=== PATIENT | female | born 1990 | race Caucasian/White ===

== ENCOUNTER 2019-10-06 01:48 | Emergency (ER) | payer OTHER, SELFPAY ==
[2019-10-06 01:54] VITALS: BP 137/84; PULSE 79; RESP 18; TEMP 36.3; O2SAT 100
--- NOTE | 2019-10-06 02:02 | ED.EAR ---
HPI - Ear Problem General Chief complaint: Ear Stated complaint: jaw and ear pain Time Seen by Provider: 10/06/19 02:02 Source: patient Mode of arrival: ambulatory Limitations: no limitations History of Present Illness HPI Narrative: Patient is a 29-year-old female who presents for evaluation of right-sided jaw and ear pain. Patient reports feeling as if she has fluid in her ear. She reports a popping sensation whenever she moves her jaw and some associated pain over the right jaw. She reports pain when she bites down. Pain is dull, aching in nature. Patient cannot sleep, thus she sought care in the emergency department. No discharge from the ear. Patient states that her hearing seems a bit muffled. No sore throat, patient does report some sinus congestion since stopping smoking. Patient denies any headache, chest pain, shortness of breath. No recent sick contacts. No fever. Related Data Home Medications Medication Instructions Recorded Confirmed levonorgestrel-ethinyl estrad 1 tablet PO DAILY 10/06/19 [Vienva] Allergies Allergy/AdvReac Type Severity Reaction Status Date / Time No Known Allergies Allergy Verified 10/06/19 02:00 Review of Systems Review of Systems: Narrative: CONSTITUTIONAL: Denies fever CARDIOVASCULAR: Denies chest pain RESPIRATORY: Denies cough or dyspnea. GASTROINTESTINAL: Denies abdominal pain SKIN: Denies rash MUSCULOSKELETAL: Denies back pain NEUROLOGIC: Denies headache PMF Past Medical History Medical History (Updated 10/06/19 @ 02:18 by Alexia Latham MD) Hypothyroid Tonsillitis Surgical History Surgical History (Updated 10/06/19 @ 02:03 by Alexia Latham MD) History of tonsillectomy Exam Narrative: Exam Narrative: GENERAL: Awake, alert, conversant HEAD: Normocephalic, atraumatic. EYES: PERRLA and EOMI. ENT: Nares clear, no rhinorrhea or epistaxis. Mucous membranes moist. Left tympanic membrane unremarkable. Right tympanic membrane with small serous effusion. No perforation. Mild erythema of the right tympanic membrane without bulging. Uvula is midline. No dental caries. NECK: Supple. Tenderness to the right masseter. No facial edema, erythema. Pain is with palpation. Bite is in alignment. CHEST: No respiratory distress, breathing even and non labored HEART: Regular rate, sinus rhythm ABDOMEN:Non distended, non tender EXTREMITIES: Normal range of motion. No edema. SKIN: Warm, dry, no rash. NEURO:No focal deficits. Alert and oriented x3 Course Vital Signs Vital signs: Vital Signs Temperature 36.3 C L 10/06/19 01:54 Pulse Rate 79 10/06/19 01:54 Respiratory Rate 18 10/06/19 01:54 Blood Pressure 137/84 10/06/19 01:54 Pulse Oximetry 100 10/06/19 01:54 Temperature 36.3 C L 10/06/19 01:54 Pulse Rate 79 10/06/19 01:54 Respiratory Rate 18 10/06/19 01:54 Blood Pressure 137/84 10/06/19 01:54 Pulse Oximetry 100 10/06/19 01:54 Medical Decision Making MDM Narrative Medical decision making narrative: Patient presented for right ear pain, right jaw pain. At the time of initial assessment, ABCs are intact and vital signs are stable. Patient is well-appearing. No facial asymmetry, edema or bruising on exam. Patient with very mild serous effusion of the right ear, perhaps that is what is causing her symptoms. This would be a mild otitis media. Perhaps the jaw pain is related to TMJ type component versus radiation of the pain from the ear. Because I can reproduce it when the patient is made to bite down, I am more suspicious of TMJ. Patient does not have any dental caries. No masses in the mouth. Uvula is midline. No sign of strep pharyngitis. No signs of viral sinusitis. I explained to patient that this could come from gritting her teeth at night even if she is not aware of it, and if the antibiotic does not help the pain she is experiencing, she is best to follow-up with her primary care provider and possibly a den
== END 2019-10-06 02:20 | disposition home or self-care (01) ==
LOC: ANHED 02:14
PROVIDERS: Emergency Provider Emergency Medicine; PCP Nurse Practitioner Adult Health
DX: S03.41XA Sprain of jaw, right side, initial encounter (principal); H66.91 Otitis media, unspecified, right ear; E03.9 Hypothyroidism, unspecified; X58.XXXA Exposure to other specified factors, initial encounter
CPT/HCPCS: 99283

== ENCOUNTER 2021-01-08 07:33 | Outpatient (RCR) | payer BC, SELFPAY ==
[2021-01-08] MEDS: RHO(D) IMMUNE GLOBULIN 300 MCG/2 ML SYRINGE IM (17:42)
== END 2021-01-08 07:34 | disposition home or self-care (01) ==
LOC: ANHLAB 07:33
PROVIDERS: PCP Nurse Practitioner Adult Health; Visit Provider Obstetrics & Gynecology
DX: Z29.13 Encounter for prophylactic Rho(D) immune globulin (principal); O36.0130 Maternal care for anti-D [Rh] antibodies, third trimester, not applicable or unspecified; Z3A.00 Weeks of gestation of pregnancy not specified
CPT/HCPCS: 36415; 85461; 90384; 96372; J2790

== ENCOUNTER 2021-06-06 17:17 | Outpatient (RCR) | payer BC, OTHER, SELFPAY ==
[2021-06-05 11:58] LABS: Hematocrit 31.7 % (37.0-47.0); Hemoglobin 10.7 g/dL (12.0-15.0)
[2021-06-06 06:55] LABS: HIV 1/2 Ab P24 Ag Result Negative (Negative)
[2021-06-06] MEDS: RHO(D) IMMUNE GLOBULIN 300 MCG/2 ML SYRINGE IM (17:29)
== END 2021-09-03 23:59 | disposition home or self-care (01) ==
LOC: ANHLAB 17:17
PROVIDERS: PCP Nurse Practitioner Adult Health; Visit Provider Obstetrics & Gynecology
DX: Z11.4 Encounter for screening for human immunodeficiency virus [HIV] (principal); Z29.13 Encounter for prophylactic Rho(D) immune globulin; O36.0190 Maternal care for anti-D [Rh] antibodies, unspecified trimester, not applicable or unspecified; Z3A.00 Weeks of gestation of pregnancy not specified
CPT/HCPCS: 36415; 85014; 85018; 85461; 86703; 90384; G0432; J2790

== ENCOUNTER 2021-06-30 21:34 | Observation (INO) | payer BC, OTHER, SELFPAY ==
[2021-06-30] VITALS (8 sets, daily range): BP systolic 113–127; BP diastolic 66–70; PULSE 81–95
[2021-06-30 23:02] LABS: Add Urine Microscopic? YES; Appearance Urine Cloudy (Clear); Bacteria Urine Trace /hpf; Bilirubin Urine Negative (Negative); Blood Urine Negative (Negative); Color Urine Yellow (Yellow); Glucose Urine UA Negative (Negative); Ketones Urine 1+ mg/dL (Negative); Leukocyte Esterase Ur Trace LEU/UL (NEGATIVE); Mucus Urine Rare /lpf; Nitrate Urine Negative (Negative); Protein Urine Negative (Negative); RBC Urine 0-2 /hpf (0-2); Specific Grav Ur 1.019 (1.001-1.035); Squamous Epithelial Cell Urine Many /hpf (Few); Urobilinogen Urine Negative mg/dL (<2.0); WBC Urine 0-3 /hpf (0-3)
[2021-06-30] MEDS: TERBUTALINE SULFATE 1 MG/ML VIAL 0.25 MG SUB-Q (23:53)
[2021-07-01 00:02] VITALS: BP 111/70; PULSE 98
[2021-07-01 00:31] VITALS: BP 125/75; PULSE 95
[2021-07-01 01:01] VITALS: BP 121/61; PULSE 87
[2021-07-01 01:31] VITALS: BP 113/67; PULSE 94
[2021-07-01 01:39] LABS: Fetal Fibronectin Negative
--- NOTE | 2021-08-04 11:42 | PM.OBTRLD ---
OB - Triage/Final Diagnosis Visit Information Comments/Additional reasons for admission: I have assessed the risk for this patient, Marzena Harris, and determined that she would benefit from observation care. Evaluation Laboratory results: Laboratory Tests 06/30/21 07/01/21 22:51 01:07 Urine Color Yellow Urine Appearance Cloudy H Urine pH 6.0 Ur Specific [place] 1.019 Urine Protein Negative Urine Glucose (UA) Negative Urine Ketones 1+ H Ur Blood (Man) Negative Urine Nitrate Negative Urine Bilirubin Negative Urine Urobilinogen Negative Ur Leukocyte Esterase Trace H Urine RBC 0-2 Urine WBC 0-3 Ur Squamous Epith Cells Many H Urine Bacteria Trace Urine Mucus Rare Fibronectin Negative Final Diagnosis (1) Decreased movement: Code(s): O36.8190 - Decreased movements, unspecified trimester, not applicable or unspecified Status: Acute
== END 2021-07-01 01:57 | disposition home or self-care (01) ==
LOC: ANHOBPP 21:52
PROVIDERS: Advanced Practice Midwife; Admitting Provider Obstetrics & Gynecology; PCP Nurse Practitioner Adult Health; Visit Provider Obstetrics & Gynecology
DX: O36.8190 Decreased fetal movements, unspecified trimester, not applicable or unspecified (principal); Z3A.00 Weeks of gestation of pregnancy not specified
CPT/HCPCS: 81001; 82731; 96372; G0378; G0379; J3105

== ENCOUNTER 2021-07-09 20:35 | Observation (INO) | payer BC, OTHER, SELFPAY ==
[2021-07-09] VITALS (7 sets, daily range): BP systolic 115–145; BP diastolic 62–114; PULSE 80–103; RESP 18; TEMP 36.4; BMI 39.3
--- NOTE | 2021-07-09 21:27 | OBADM ---
This patient, Marzena Harris, admitted to the OB room 113 for observation. Patient/family oriented to hospital policies and general routines including ID bracelet, bed and alarms, visiting hours, pain management, procedures, bathroom and other care routines, personal items, smoking policy, room service/diet, and visiting hours. Patient/Family are encouraged to report perceived risks to care and to ask questions if they do not understand what they are told or what they should do.
[2021-07-09 21:52] LABS: Add Urine Microscopic? YES; Appearance Urine Clear (Clear); Bilirubin Urine Negative (Negative); Blood Urine Negative (Negative); Color Urine Yellow (Yellow); Glucose Urine UA Negative (Negative); Ketones Urine 1+ mg/dL (Negative); Leukocyte Esterase Ur Negative LEU/UL (Negative); Mucus Urine Rare /lpf; Nitrate Urine Negative (Negative); Protein Urine Negative (Negative); RBC Urine 0-2 /hpf (0-2); Specific Grav Ur 1.025 (1.001-1.035); Squamous Epithelial Cell Urine Occasional /hpf (Few); Urobilinogen Urine Negative mg/dL (<2.0); WBC Urine 0-3 /hpf
[2021-07-09] MEDS: TERBUTALINE SULFATE 1 MG/ML VIAL 0.25 MG SUB-Q (22:00)
[2021-07-10] VITALS: BP 123/62; PULSE 89
--- NOTE | 2021-07-10 00:09 | PC.NURSE ---
Update to Leandra Contreras on unit. Will give Procardia XL.
[2021-07-10] MEDS: NIFEdipine 30 MG TAB.ER.24 PO (00:21)
[2021-07-10 01:41] VITALS: BP 128/70; PULSE 85
--- NOTE | 2021-07-12 08:49 | P.PNOB_ITS ---
OB - Triage/Final Diagnosis Visit Information Date of evaluation: 07/09/21 Reason for evaluation: threatened labor Comments/Additional reasons for admission: I have assessed the risk for this patient, Marzena Harris, and determined that she would benefit from observation care. Evaluation Laboratory results: Laboratory Tests 07/09/21 21:33 Urine Color Yellow Urine Appearance Clear Urine pH 6.0 Ur Specific [place] 1.025 Urine Protein Negative Urine Glucose (UA) Negative Urine Ketones 1+ H Ur Blood (Man) Negative Urine Nitrate Negative Urine Bilirubin Negative Urine Urobilinogen Negative Leukocyte Esterase Rfl Negative Urine RBC 0-2 Urine WBC 0-3 Ur Squamous Epith Cells Occasional Urine Mucus Rare
== END 2021-07-10 02:05 | disposition home or self-care (01) ==
PROVIDERS: Advanced Practice Midwife; Admitting Provider Obstetrics & Gynecology; PCP Nurse Practitioner Adult Health; Visit Provider Obstetrics & Gynecology
DX: O47.03 False labor before 37 completed weeks of gestation, third trimester (principal); Z3A.32 32 weeks gestation of pregnancy
CPT/HCPCS: 81001; 96372; A9270; G0378; G0379; J3105

== ENCOUNTER 2021-07-18 07:59 | Outpatient (RCR) | payer BC, OTHER, SELFPAY ==
[2021-07-03 11:46] VITALS: BP 113/67; PULSE 87
[2021-07-18 08:25] VITALS: BP 108/70; PULSE 93
== END 2021-10-01 23:59 | disposition home or self-care (01) ==
LOC: ANHOBOP 07:59
PROVIDERS: PCP Nurse Practitioner Adult Health; Visit Provider Obstetrics & Gynecology
DX: O36.8130 Decreased fetal movements, third trimester, not applicable or unspecified (principal); O24.419 Gestational diabetes mellitus in pregnancy, unspecified control; Z3A.31 31 weeks gestation of pregnancy; Z3A.34 34 weeks gestation of pregnancy
CPT/HCPCS: 59025

== ENCOUNTER 2021-07-21 19:35 | Observation (INO) | payer BC, OTHER, SELFPAY ==
[2021-07-21] VITALS (24 sets, daily range): BP systolic 123–134; BP diastolic 68–80; PULSE 72–92; O2SAT 97–100
[2021-07-21 20:14] LABS: Glucose Point of Care 112 mg/dl (65-105)
--- NOTE | 2021-07-21 21:33 | PC.NURSE ---
2023- called Dr. Sheehan- informed of pt admission for just not feeling right GDM- BS tonight 1 hour after eating was 166. pt was shaky and nauseated and felt crampy. order received for po hydration on monitor. BS here was 112. will continue to monitor and call with questions/concerns
--- NOTE | 2021-07-21 21:35 | PC.NURSE ---
2128- called Dr. Sheehan- update given on pt. pt feeling contractions every 4-5 minutes. order received for Procardia XL 30mg and 1 dose of terbutaline. also perform cervical exam. will continue to monitor and call if questions/concerns
[2021-07-21] MEDS: NIFEdipine 30 MG TAB.ER.24 PO (21:51)
[2021-07-21] MEDS: TERBUTALINE SULFATE 1 MG/ML VIAL 0.25 MG SUB-Q (21:51)
--- NOTE | 2021-07-21 21:55 | PC.NURSE ---
cervical exam 170%/-2. per pt no change from last exam
--- NOTE | 2021-07-21 23:51 | PC.NURSE ---
2323- called Dr. Sheehan- tracing reviewed. pt not feeling contractions and wanting to d/c home. order received to d/c home with instructions on when to return to L&D or call office. pt to keep her appt with Dai Contreras this .
--- NOTE | 2021-07-21 23:56 | OBADM ---
This patient, Marzena Harris, admitted to the OB room OB Post 113 for observation. Patient/family oriented to hospital policies and general routines including ID bracelet, bed and alarms, visiting hours, pain management, procedures, bathroom and other care routines, personal items, smoking policy, room service/diet, and visiting hours. Patient/Family are encouraged to report perceived risks to care and to ask questions if they do not understand what they are told or what they should do.
--- NOTE | 2021-08-11 15:32 | PM.OBTRLD ---
OB - Triage/Final Diagnosis Visit Information Comments/Additional reasons for admission: I have assessed the risk for this patient, Marzena Harris, and determined that she would benefit from observation care. Evaluation Laboratory results: Laboratory Tests 07/21/21 20:10 POC Capillary Glucose 112 H Final Diagnosis (1) Nausea and vomiting: Code(s): R11.2 - Nausea with vomiting, unspecified Status: Acute
== END 2021-07-21 23:39 | disposition home or self-care (01) ==
PROVIDERS: Admitting Provider Obstetrics & Gynecology; PCP Nurse Practitioner Adult Health; Visit Provider Obstetrics & Gynecology
DX: O21.2 Late vomiting of pregnancy (principal); Z3A.34 34 weeks gestation of pregnancy
CPT/HCPCS: 82948; 96372; A9270; G0378; G0379; J3105

== ENCOUNTER 2021-07-28 17:00 | Observation (INO) | payer BC, OTHER, SELFPAY ==
[2021-07-28 17:18] VITALS: BP 113/73; PULSE 90
[2021-07-28 17:31] VITALS: BP 110/69; PULSE 85
[2021-07-28 17:32] VITALS: BMI 38.4
--- NOTE | 2021-07-28 17:32 | OBADM ---
This patient, Marzena Harris, admitted to the OB room OB Post 116 for observation. Patient/family oriented to hospital policies and general routines including ID bracelet, bed and alarms, visiting hours, pain management, procedures, bathroom and other care routines, personal items, smoking policy, room service/diet, and visiting hours. Patient/Family are encouraged to report perceived risks to care and to ask questions if they do not understand what they are told or what they should do.
[2021-07-28 17:46] VITALS: BP 115/70; PULSE 85
[2021-07-28 18:12] VITALS: TEMP 36.6
--- NOTE | 2021-07-30 20:13 | PM.OBTRLD ---
OB - Triage/Final Diagnosis Visit Information Date of evaluation: 07/28/21 Reason for evaluation: threatened labor Comments/Additional reasons for admission: I have assessed the risk for this patient, Marzena Monrealpamela, and determined that she would benefit from observation care.
== END 2021-07-28 18:30 | disposition home or self-care (01) ==
PROVIDERS: Admitting Provider Obstetrics & Gynecology; PCP Nurse Practitioner Adult Health; Referring Provider Advanced Practice Midwife; Visit Provider Obstetrics & Gynecology
DX: O47.03 False labor before 37 completed weeks of gestation, third trimester (principal); Z3A.35 35 weeks gestation of pregnancy
CPT/HCPCS: G0378; G0379

== ENCOUNTER 2021-08-19 18:20 | Observation (INO) | payer BC, MEDICAID, SELFPAY ==
[2021-08-19 21:00] VITALS: RESP 17; TEMP 36.5
[2021-08-19 21:37] VITALS: BMI 38.0
--- NOTE | 2021-08-19 21:37 | OBADM ---
This patient, Marzena Harris, admitted to the OB room Labor/Delivery/Recovery 106 for observation. Patient/family oriented to hospital policies and general routines including ID bracelet, bed and alarms, visiting hours, pain management, procedures, bathroom and other care routines, personal items, smoking policy, room service/diet, and visiting hours. Patient/Family are encouraged to report perceived risks to care and to ask questions if they do not understand what they are told or what they should do.
--- NOTE | 2021-08-22 06:14 | PM.OBTRLD ---
OB - Triage/Final Diagnosis Visit Information Date of evaluation: 08/19/21 Reason for evaluation: threatened labor Comments/Additional reasons for admission: I have assessed the risk for this patient, Marzena Monrealpamela, and determined that she would benefit from observation care.
== END 2021-08-19 21:41 | disposition home or self-care (01) ==
PROVIDERS: Admitting Provider Obstetrics & Gynecology; PCP Nurse Practitioner Adult Health; Visit Provider Obstetrics & Gynecology
DX: O47.9 False labor, unspecified (principal); Z3A.00 Weeks of gestation of pregnancy not specified
CPT/HCPCS: G0378; G0379

== ENCOUNTER 2021-08-22 05:00 | Inpatient (IN) | payer BC, MEDICAID, SELFPAY ==
[2021-08-22] VITALS (69 sets, daily range): BP systolic 56–160; BP diastolic 15–122; PULSE 41–156; RESP 16–18; TEMP 36.1–37.1; O2SAT 88–100; BMI 38.7
--- OUTSIDE RECORDS SUMMARY | 2021-08-22 05:05 | XMS_ITS ---
:1990 Author Care Team Providers Name Role Phone [facility]- Primary Care Provider [phone] Allergies Code Code System Name Reaction Severity Status Onset NKDA ? Medications Name Status Start Date Stop Date ? ? amoxicillin 500 mg tablet Completed 04/24/20142014 take 1 tablet by oral route 2 times every day for 7 days amoxicillin 875 mg tablet Completed ? 2020 aspirin 81 mg capsule Active ? Not availa ble Take 1 capsule every day by oral route. Aviane 0.1 mg-20 mcg tablet Completed ? 01/03 Take 1 tablet every day by oral route. dicloxacillin 500 mg capsule Completed 11/02/201411/2014 take 1 capsule by oral route every 6 h ours 1 hour before a meal or 2 hours after a meal Humulin N NPH U-100 Insulin Active ? Not available (isophane susp) 100 unit/mL subcutaneous hydrocodone 5 mg-acetaminophen Completed ? 325 mg tablet Keflex 500 mg capsule Completed 09/27/2014 12/11/2014 take 1 capsule by oral route every 12 hours levothyroxine 25 mcg tablet Completed ? 03/06 levothyroxine 50 mcg tablet Completed ? 05/2021 levothyroxine 75 mcg tablet Active ? Not available Macrobid 100 mg capsule Completed ? 09/29/19 20 Take 1 capsule every 12 hours by oral route for 5 days. nitrofurantoin Completed ? 09/29/2019 monohydrate/macrocry stals 100 mg caps OneTouch Delica Plus Lancet 33 Active ? N
--- OUTSIDE RECORDS SUMMARY | 2021-08-22 05:05 | XMS_ITS | Encounter Summary ---
:1990 Author Care Team Providers Name Role Phone Marguerite Thompson [facility]- Primary Care Provider [phone] Reason for Visit None recorded. Assessment and Plan 1. condition affecting obs tetrical care of mother ? US, obstetric, biophysical profile Discussion Note: None recorded.Patient educational handouts: No information available. Plan of Care Reminders Provider Appointments Ob Routine 08/29/2021 Leandra h E 9:45AM CHOCO Contreras ? 3Hr Glucose on or around Tory ah E 10/10/2021 CHOCO Contreras Lab None ? ? recorded. Referral None ? ? recorded. Procedures None ? ? recorded. Surgeries None ? ? recorded. Imaging US, 08/19/2021 [place] [facility], Biophysical Profile Medications Name Start Date ? ? aspirin 81 mg capsule ? Take 1 capsule every day by oral route. Humulin N NPH U-100 Insulin (isophane susp) 100 unit/m L subcutaneous ? INJECT 15 UNITS UNDER THE SKIN ONCE DAILY AT BEDTIME levothyroxine 75 mcg tablet ? TAKE 1 TABLET BY MOUTH EVERY DAY OneTouch Delica Plus Lancet 33 gauge ? USE TO TEST FOUR TIMES DAILY OneTouch Ultra Test strips ? USE TO TEST FOUR TIMES DAILY OneTouch
--- OUTSIDE RECORDS SUMMARY | 2021-08-22 05:05 | XMS_ITS | Encounter Summary ---
:1990 Author Care Team Providers Name Role Phone Marguerite Thompson [facility]- Primary Care Provider [phone] Reason for Visit None recorded. Assessment and Plan 1. Gestational diabetes mellitus , class A>2< ? non-stress test Discussion Note: None recorded.Patient educational handouts: No information available. Plan of Care Reminders Provider Appointments Ob Routine 08/29/2021 Leandra Contreras, 9:45AM CN[facility] ? 3Hr on or around Amanda laura, Glucose 10/10/2021 CN[facility] Lab None ? ? recorded. Referral None ? ? recorded. Procedures None ? ? recorded. Surgeries None ? ? recorded. Imaging Non-stress 08/19/2021 Shelly pike Test Medications Name Start Date ? ? aspirin [...] USE TO TEST FOUR TIMES DAILY OneTouch Ultra2 Meter ? USE TO TEST FOUR TIMES DAILY ? Procardia XL 30 mg tablet,extended release ?
--- OUTSIDE RECORDS SUMMARY | 2021-08-22 05:05 | XMS_ITS | Encounter Summary ---
:1990 Author Care Team Providers Name Role Phone Marguerite Thompson [facility]- Primary Care Provider [phone] Reason for Visit OB visit OB [id number] EDC 08/29/2021 LMP 11/22/2020 Assessment and Plan Assessment Note Patient is _38__weeks . Dis cussed plan. 1. Routine care Discussion Note: None recorded.Patient educational handouts: No information available. Plan of Care Reminders Provider Appointments Ob Routine 08/29/2021 Leandra Contreras, 9:45AM CNM ? 3Hr on or around Amanda laura, Glucose 10/10/2021 CNM Lab None ? ? recorded. Referral None ? ? recorded. Procedures None ? ? recorded. Surgeries None ? ? recorded. Imaging None ? ? recorded. Medications Name Start Date ? ? aspirin [...]
--- OUTSIDE RECORDS SUMMARY | 2021-08-22 05:06 | XMS_ITS | Encounter Summary ---
:1990 Author Care Team Providers Name Role Phone Marguerite Thompson [facility]- Primary Care Provider [phone] Reason for Visit None recorded. Assessment and Plan 1. COVID-19 ? US, obstetric, follow-up Discussion Note: None recorded.Patient educational handouts: No information available. Plan of Care Reminders Provider Appointments Ob Routine 08/29/2021 Leandra Contreras, 9:45AM CNM ? 3Hr on or around Amanda laura, Glucose 10/10/2021 CNM Lab None ? ? recorded. Referral None ? ? recorded. Procedures None ? ? recorded. Surgeries None ? ? recorded. Imaging US, 07/15/2021 [place] [facility], Follow-up Medications Name Start Date ? ? aspirin [...]
--- OUTSIDE RECORDS SUMMARY | 2021-08-22 05:06 | XMS_ITS | Encounter Summary ---
:1990 Author Care Team Providers Name Role Phone Marguerite Thompson [facility]- Primary Care Provider [phone] Reason for Visit None recorded. Assessment and [...] Surgeries None ? ? recorded. Imaging Non-stress 08/01/2021 Shelly pike Test Medications Name Start Date [...]
--- OUTSIDE RECORDS SUMMARY | 2021-08-22 05:06 | XMS_ITS | Encounter Summary ---
:1990 Author Care Team Providers Name Role Phone Marguerite [facility]- Primary Care Provider [phone] Reason for Visit OB visit ob [id number] edc 08/29/2021 lmp 11/22/2020 Assessment and Plan Assessment Note Patient is _36__weeks . Dis cussed plan. 1. Routine care [...]
--- OUTSIDE RECORDS SUMMARY | 2021-08-22 05:06 | XMS_ITS | Encounter Summary ---
:1990 Author Care Team Providers Name Role Phone Marguerite Thompson [facility]- Primary Care Provider [phone] Reason for Visit None recorded. Assessment and [...] Surgeries None ? ? recorded. Imaging Non-stress 08/08/2021 Shelly pike Test Medications Name Start Date [...]
--- OUTSIDE RECORDS SUMMARY | 2021-08-22 05:06 | XMS_ITS | Encounter Summary ---
:1990 Author Care Team Providers Name Role Phone Marguerite Thompson [facility]- Primary Care Provider [phone] Reason for Visit OB visit Assessment and Plan 1. Disorder of abdominal r egion 2. Gestational diabetes mellitus 3. Shoulder dystocia - delivered Discussion Note: None recorded.Patient educational handouts: No [...] USE TO TEST FOUR TIMES DAILY ? Proc
--- OUTSIDE RECORDS SUMMARY | 2021-08-22 05:06 | XMS_ITS | Encounter Summary ---
:1990 Author Care Team Providers Name Role Phone Marguerite Thompson [facility]- Primary Care Provider [phone] Reason for Visit None recorded. Assessment and [...] Surgeries None ? ? recorded. Imaging Non-stress 07/29/2021 Shelly pike Test Medications Name Start Date [...]
--- OUTSIDE RECORDS SUMMARY | 2021-08-22 05:06 | XMS_ITS | Encounter Summary ---
:1990 Author Care Team Providers Name Role Phone Marguerite Thompson [facility]- Primary Care Provider [phone] Reason for Visit None recorded. Assessment and [...] Surgeries None ? ? recorded. Imaging Non-stress 07/25/2021 Shelly pike Test Medications Name Start Date [...]
--- OUTSIDE RECORDS SUMMARY | 2021-08-22 05:06 | XMS_ITS | Encounter Summary ---
:1990 Author Care Team Providers Name Role Phone Marguerite Thompson [facility]- Primary Care Provider [phone] Reason for Visit OB visit ob [id number] edc 08/29/2021 lmp 11/22/2020 Assessment and Plan Assessment Note Patient is 37___weeks . Dis cussed plan. 1. Routine care [...]
--- OUTSIDE RECORDS SUMMARY | 2021-08-22 05:06 | XMS_ITS | Encounter Summary ---
:1990 Author Care Team Providers Name Role Phone Marguerite Jay [facility]- Primary Care Provider [phone] Reason for Visit OB visit OB [id number] EDC 08/29/2021 LMP 11/22/2020 PPD SCORE 10 Assessment and Plan Assessment Note Patient is __33_weeks . Dis cussed plan. 1. Routine care 2. Threatened premature labor - not delivered ? Procardia XL 30 mg tablet, extended release Discussion Note: None recorded.Patient educational handouts: No [...]
--- OUTSIDE RECORDS SUMMARY | 2021-08-22 05:06 | XMS_ITS | Encounter Summary ---
:1990 Author Care Team Providers Name Role Phone Marguerite Thompson [facility]- Primary Care Provider [phone] Reason for Visit None recorded. Assessment and Plan 1. Gestational diabetes mellitus , class A>1< ? non-stress test Discussion Note: None recorded.Patient educational handouts: No information available. Plan of Care Reminders Provider Appointments Ob Routine 08/29/2021 Leandra Contreras, 9:45AM CNM ? 3Hr on or around Amanda laura, Glucose 10/10/2021 CNM Lab None ? ? recorded. Referral None ? ? recorded. Procedures None ? ? recorded. Surgeries None ? ? recorded. Imaging Non-stress 07/15/2021 Shelly pike Test Medications Name Start Date [...]
--- OUTSIDE RECORDS SUMMARY | 2021-08-22 05:06 | XMS_ITS | Encounter Summary ---
:1990 Author Care Team Providers Name Role Phone Marguerite Thompson [facility]- Primary Care Provider [phone] Reason for Visit None recorded. Assessment and [...] Surgeries None ? ? recorded. Imaging Non-stress 07/22/2021 Shelly pike Test Medications Name Start Date [...]
--- OUTSIDE RECORDS SUMMARY | 2021-08-22 05:06 | XMS_ITS | Encounter Summary ---
:1990 Author Care Team Providers Name Role Phone Marguerite Thompson [facility]- Primary Care Provider [phone] Reason for Visit None recorded. Assessment and [...] Surgeries None ? ? recorded. Imaging Non-stress 08/15/2021 Shelly pike Test Medications Name Start Date [...]
--- OUTSIDE RECORDS SUMMARY | 2021-08-22 05:06 | XMS_ITS | Encounter Summary ---
:1990 Author Care Team Providers Name Role Phone Marguerite Thompson [facility]- Primary Care Provider [phone] Reason for Visit None recorded. Assessment and [...] Surgeries None ? ? recorded. Imaging Non-stress 08/12/2021 Shelly pike Test Medications Name Start Date [...]
--- OUTSIDE RECORDS SUMMARY | 2021-08-22 05:06 | XMS_ITS | Encounter Summary ---
:1990 Author Care Team Providers Name Role Phone Marguerite Thompson [facility]- Primary Care Provider [phone] Reason for Visit OB visit OB [id number] EDC 08/29/2021 LMP 11/22/2020 Assessment and Plan Assessment Note Patient is __35_weeks . Dis cussed plan. 1. Routine care [...]
--- OUTSIDE RECORDS SUMMARY | 2021-08-22 05:06 | XMS_ITS | Encounter Summary ---
:1990 Author Care Team Providers Name Role Phone Marguerite Thompson [facility]- Primary Care Provider [phone] Reason for Visit None recorded. Assessment and Plan 1. Gestational diabetes mellitus , class A>2< ? US, obstetric, follow-up Discussion Note: None recorded.Patient educational handouts: No information available. Plan of Care Reminders Provider Appointments Ob Routine 08/29/2021 Leandra Contreras, 9:45AM CNM ? 3Hr on or around Amanda laura, Glucose 10/10/2021 CNM Lab None ? ? recorded. Referral None ? ? recorded. Procedures None ? ? recorded. Surgeries None ? ? recorded. Imaging US, 08/08/2021 [place] [facility], Follow-up Medications Name Start Date ? [...]
--- OUTSIDE RECORDS SUMMARY | 2021-08-22 05:06 | XMS_ITS | Encounter Summary ---
:1990 Author Care Team Providers Name Role Phone Marguerite Thompson [facility]- Primary Care Provider [phone] Reason for Visit None recorded. Assessment and [...] Surgeries None ? ? recorded. Imaging Non-stress 08/05/2021 Shelly pike Test Medications Name Start Date [...]
--- OUTSIDE RECORDS SUMMARY | 2021-08-22 05:07 | XMS_ITS | Encounter Summary ---
:1990 Author Care Team Providers Name Role Phone Marguerite Thompson [facility]- Primary Care Provider [phone] Reason for Visit OB visit [id number] Assessment and Plan 1. Routine care Discussion Note: None recorded.Patient [...] Procardia XL 30 mg tablet,extended release ? Take 1 tablet every day by oral route.
--- OUTSIDE RECORDS SUMMARY | 2021-08-22 05:07 | XMS_ITS | Encounter Summary ---
:1990 Author Care Team Providers Name Role Phone Marguerite Thompson [facility]- Primary Care Provider [phone] Reason for Visit OB visit OB [id number] EDC 08/29/2021 LMP Assessment and Plan Assessment Note Patient is _30__weeks . Dis cussed plan. 1. Routine care [...]
--- OUTSIDE RECORDS SUMMARY | 2021-08-22 05:07 | XMS_ITS | Encounter Summary ---
:1990 Author Care Team Providers Name Role Phone Marguerite Thompson [facility]- Primary Care Provider [phone] Reason for Visit None recorded. Assessment and [...] Surgeries None ? ? recorded. Imaging Non-stress 07/11/2021 Shelly pike Test Medications Name Start Date [...]
--- OUTSIDE RECORDS SUMMARY | 2021-08-22 05:07 | XMS_ITS | Encounter Summary ---
:1990 Author Care Team Providers Name Role Phone Marguerite Thompson Anp- Primary Care Provider [phone] Reason for Visit None recorded. Assessment and Plan 1. Gestational diabetes mellitus , class A>1< Pt here for diet teaching. Tnagela t over ideal ranges for FBS and pp BS. Went over carb counting and carb ranges for e ach meal/snack. Gave ideas for foods to eat for meals/snacks. Discussed drink option s and to avoid soda and juice. Told pt she can go online to look up low carb meal r ecipes for ideas as well. Pt has checked BS for a few days. All pp numbers are lisbeth l, 3/3 fasting levels are elevated. Told pt since we just did diet teaching today wi ll review sugars with a provider, but we will want to keep a close eye on fasting leve ls and pt to update us on BS on 06/12 to see if we need to consider insulin at HS. To ld pt to continue checking BS QID and adjusting diet to follow low carb diet t o try to keep BS within normal range. Pt aware if sugars aren't controlled by t we would discuss starting insulin. Went over NST schedule with pt and importance of keeping these appts and checking BS for her and baby's health. Pts questions wer e answered and pt verbalized understanding. JEANCARLOS carrillo Discussion Note: None recorded.Patient educational handouts: No information available. Plan of Care Reminders Provider Appointments Ob Routine 08/29/2021 Leandra Contreras, 9:45AM CNM ? 3Hr on or around Amanda laura, Glucose 10/10/2021 CNM Lab None ? ? recorded. Referral None ? ? recorded. Procedures None
--- OUTSIDE RECORDS SUMMARY | 2021-08-22 05:07 | XMS_ITS | Encounter Summary ---
:1990 Author Care Team Providers Name Role Phone Marguerite Thompson [facility]- Primary Care Provider [phone] Reason for Visit OB visit OB [id number] EDC 08/29/2021 LMP Assessment and Plan Assessment Note Patient is _32__weeks . Dis cussed plan. 1. Routine care [...]
--- OUTSIDE RECORDS SUMMARY | 2021-08-22 05:07 | XMS_ITS | Encounter Summary ---
:1990 Author Care Team Providers Name Role Phone Marguerite Thompson Anp- Primary Care Provider [phone] Reason for Visit None recorded. Assessment and Plan 1. Gestational diabetes mellitus , class A>2< Pt here for insulin teaching. Insulin teaching completed and return demonstration appropriate. Pt instructed on subq insulin administration and administration sites. Pt instructed on c leaning insulin vial and insulin administration site with alcohol swab, i nstructed on how to draw up insulin and verify amount in syringe, and finally ho w to administer insulin. Pt verbalized understanding of information and provide d return demonstration. Pt's insulin rx and supplies were previous called to her pha rmacy. Pt will call after administering insulin for several nights at bedtime so fasting blood sugars can be reviewed. Heena Galvez RN Discussion Note: None recorded.Patient educational handouts: No [...]
--- OUTSIDE RECORDS SUMMARY | 2021-08-22 05:07 | XMS_ITS | Encounter Summary ---
:1990 Author Care Team Providers Name Role Phone Marguerite Thompson [facility]- Primary Care Provider [phone] Reason for Visit None recorded. Assessment and [...] Surgeries None ? ? recorded. Imaging Non-stress 07/08/2021 Shelly pike Test Medications Name Start Date [...]
--- OUTSIDE RECORDS SUMMARY | 2021-08-22 05:07 | XMS_ITS | Encounter Summary ---
:1990 Author Care Team Providers Name Role Phone Marguerite Thompson [facility]- Primary Care Provider [phone] Reason for Visit None recorded. Assessment and Plan 1. Reduced movement ? non-stress test Discussion Note: None recorded.Patient educational handouts: No information available. Plan of Care Reminders Provider Appointments Ob Routine 08/29/2021 Leandra Contreras, 9:45AM CNM ? 3Hr on or around Amanda laura, Glucose 10/10/2021 CNM Lab None ? ? recorded. Referral None ? ? recorded. Procedures None ? ? recorded. Surgeries None ? ? recorded. Imaging Non-stress 07/04/2021 Shelly pike Test Medications Name Start Date [...]
--- OUTSIDE RECORDS SUMMARY | 2021-08-22 05:07 | XMS_ITS | Encounter Summary ---
:1990 Author Care Team Providers Name Role Phone Marguerite Thompson [facility]- Primary Care Provider [phone] Reason for Visit None recorded. Assessment and [...] Surgeries None ? ? recorded. Imaging US, 06/20/2021 [facility], Follow-up Medications Name Start Date ? [...]
[2021-08-22 05:34] LABS: Glucose Point of Care 113 mg/dl (65-105)
--- NOTE | 2021-08-22 05:41 | LDADM ---
This patient, Marzena Harris, was admitted to Labor/Delivery/Recovery 106 on 08/22/21 at 05:00. Plans for labor, pain management and were discussed with patient. Patient/family oriented to hospital policies and general routines including ID bracelet, bed and alarms, visiting hours, pain management, procedures, bathroom and other care routines, personal items, smoking policy, room service/diet and guest tray routines, security routines, and visiting hours. Patient/Family are encouraged to report perceived risks to care and to ask questions if they do not understand what they are told or what they should do. See OBIX for further documentation.
[2021-08-22] MEDS: OXYTOCIN 30 UNITS/NS 500 ML 30 UNITS/500 ML BAG IV CONT (05:47)
[2021-08-22] MEDS: LACTATED RINGERS 1,000 ML 125 ML IV CONT ×2 (05:48→10:18)
[2021-08-22] MEDS: AMPICILLIN 2 GM/NS 100 ML 2 GM/100 ML BAG IVPB (05:48)
--- NOTE | 2021-08-22 06:32 | P.PNAN_ITS ---
Anes - Eval Pre Procedure Procedure: Labor epidural Date/Time: 08/22/21 06:32 Surgeon: Aguila Preop Diagnosis: Abd pain with contractions Pre Op Diagnosis: Induction Patient Data Age: 31 Gender: F Height: 1.68 m Weight: 109 kg Last Vital Signs Pulse 83 08/22/21 05:31 BP 100/56 L 08/22/21 05:31 Allergies Allergy/AdvReac Type Severity Reaction Status Date / Time No Known Allergies Allergy Verified 07/21/21 23:55 Home Medications Medication Instructions Recorded Confirmed Type Humulin N NPH U-100 Insulin 15 unit SUBCUT HS 07/09/21 08/04/21 History PNV cmb#95-ferrous fumarate-FA 1 tablet PO DAILY 07/09/21 08/04/21 History [] Slow Fe 142 mg PO DAILY 07/09/21 08/04/21 History aspirin 81 mg PO DAILY 07/09/21 08/04/21 History levothyroxine 75 mcg PO DAILY 07/09/21 08/04/21 History sertraline 50 mg PO HS 07/09/21 08/04/21 History Laboratory Tests 08/22/21 08/22/21 08/22/21 05:30 05:33 05:33 WBC Pending RBC Pending Hgb Pending Hct Pending MCV Pending MCH Pending MCHC Pending RDW Pending Plt Count Pending MPV Pending Immature Gran % (Auto) Pending Neut % (Auto) Pending Lymph % (Auto) Pending Becker % (Auto) Pending Eos % (Auto) Pending Baso % (Auto) Pending Lymph # (Auto) Pending Becker # (Auto) Pending Eos # (Auto) Pending Baso # (Auto) Pending Abs Immat Gran (auto) Pending Absolute Neuts (auto) Pending Absolute Nucleated RBC Pending Nucleated RBC % Pending POC Capillary Glucose 113 mg/dl H mg/dl (65-105) RPR Pending Patient hx anesthesia problems: none Family hx anesthesia problems: none Results Review: All pre-operative results and documents have been reviewed as part of the pre-operative evaluation. [facility] Past Medical History Medical History Hypothyroid Obesity Tonsillitis Surgical History Surgical History History of tonsillectomy Family History Family History Mother Breast cancer Davis's disease Father Renal cell carcinoma Grandparent Leukemia Social History Social History Smoking status: Never smoker Substance use: never Spiritual care concerns: No Exam Day of Procedure 08/22/21 06:32 Patient weight: obese Airway: Mallampati scale class II Neurological: alert and oriented
--- NOTE | 2021-08-22 06:39 | WPDOBADMIT ---
Obstetrics - Admit Note Admission Note: record reviewed. No pertinent additions to the history and/or any subsequent changes in the physical findings that are not consistent with the expected course of the were found. IOL, questionable LGA, pt declines primary cesrean section. AROM large amount of clear odorless fluid /-2 anticipate vaginal delivery Additions to the history and/or subsequent changes in the physical findings follow. None.
[2021-08-22 08:37] LABS: Basophils Percent Auto 0.1 % (0.2-1.2); Eosinophils Percent Auto 0.1 % (0-4.4); Hematocrit 34.4 % (37.0-47.0); Hemoglobin 11.7 g/dL (12.0-15.0); Immature Granulocyte Absolute 0.03 K/mm3 (0.00-0.031); Immature Granulocyte Percent A 0.4 % (0-0.5); Lymphocytes Absolute Auto 1.08 K/mm3 (0.9-3.2); Lymphocytes Percent Auto 13.7 % (18.3-44.2); Mean Corpuscular Hemoglobin 31.7 pg (26-34); Mean Corpuscular Volume 93.2 fl (80-100); Mean Platelet Volume 10.9 fl (7.4-10.4); Monocytes Absolute Auto 0.5 K/mm3 (0.1-0.6); Monocytes Percent Auto 6.3 % (2.6-8.5); Neutrophils Absolute Auto 6.3 K/mm3 (1.3-6.7); Neutrophils Percent Auto 79.4 % (45.5-73.1); Platelet Count Result 165 k/mm3 (150-375); Red Blood Count 3.69 M/mm3 (4.2-5.4); Red Cell Distribution Width 13.8 % (11.5-14.5); White Blood Count 7.9 K/mm3 (4.5-10.0)
[2021-08-22] MEDS: AMPICILLIN 1 GM/NS 50 ML 1 GM/50 ML BAG IVPB (09:49)
[2021-08-22 10:02] LABS: Glucose Point of Care 87 mg/dl (65-105)
--- NOTE | 2021-08-22 10:19 | WPDANESEPP ---
Anes - Eval Pre Procedure Procedure: labor epidural Date/Time: 08/22/21 10:19 Surgeon: corky Pre Op Diagnosis: Induction Patient Data Age: 31 Gender: F Height: 1.68 m Weight: 109 kg Last Vital Signs Temp 36.1 C L 08/22/21 09:11 Pulse 78 08/22/21 09:55 BP 124/78 08/22/21 09:55 Allergies Allergy/AdvReac Type Severity Reaction Status Date / Time No Known Allergies Allergy Verified 07/21/21 23:55 Home Medications Medication Instructions Recorded Confirmed Type Humulin N NPH U-100 Insulin 15 unit SUBCUT HS 07/09/21 08/04/21 History PNV cmb#95-ferrous fumarate-FA 1 tablet PO DAILY 07/09/21 08/04/21 History [] Slow Fe 142 mg PO DAILY 07/09/21 08/04/21 History aspirin 81 mg PO DAILY 07/09/21 08/04/21 History levothyroxine 75 mcg PO DAILY 07/09/21 08/04/21 History sertraline 50 mg PO HS 07/09/21 08/04/21 History Laboratory Tests 08/22/21 08/22/21 08/22/21 05:30 05:33 05:33 WBC RBC Hgb Hct MCV MCH MCHC RDW Plt Count MPV Immature Gran % (Auto) Neut % (Auto) Lymph % (Auto) [place] % (Auto) Eos % (Auto) Baso % (Auto) Lymph # (Auto) [place] # (Auto) Eos # (Auto) Baso # (Auto) Abs Immat Gran (auto) Absolute Neuts (auto) Absolute Nucleated RBC Nucleated RBC % POC Capillary Glucose 113 mg/dl H mg/dl (65-105) RPR Pending Blood Type B Negative Antibody Screen Negative 08/22/21 08/22/21 08:22 09:58 WBC 7.9 K/mm3 K/mm3 (4.5-10.0) RBC 3.69 M/mm3 L M/mm3 (4.2-5.4) Hgb 11.7 g/dL L g/dL (12.0-15.0) Hct 34.4 % L % (37.0-47.0) MCV 93.2 fl fl (80-100) MCH 31.7 pg pg (26-34) MCHC 34.0 g/dl g/dl (32-36) RDW 13.8 % % (11.5-14.5) Plt Count 165 k/mm3 k/mm3 (150-375) MPV 10.9 fl H fl (7.4-10.4) Immature Gran % (Auto) 0.4 % % (0-0.5) Neut % (Auto) 79.4 % H % (45.5-73.1) Lymph % (Auto) 13.7 % L % (18.3-44.2) [place] % (Auto) 6.3 % % (2.6-8.5) Eos % (Auto) 0.1 % % (0-4.4) Baso % (Auto) 0.1 % L % (0.2-1.2) Lymph # (Auto) 1.08 K/mm3 K/mm3 (0.9-3.2) [place] # (Auto) 0.5 K/mm3 K/mm3 (0.1-0.6) Eos # (Auto) 0.0 K/mm3 K/mm3 (0-0.3) Baso # (Auto) 0.0 K/mm3 K/mm3 (0.0-0.1) Abs Immat Gran (auto) 0.03 K/mm3 K/mm3 (0.00-0.031) Absolute Neuts (auto) 6.3 K/mm3 K/mm3 (1.3-6.7) Absolute Nucleated RBC 0.0 K/mm3 K/mm3 (0.0-0.012) Nucleated RBC % 0.0 % % (0.0-0.2) POC Capillary Glucose 87 mg/dl mg/dl (65-105) RPR Blood Type Antibody Screen Patient hx anesthesia problems: none Family hx anesthesia problems: none Results Review: All pre-operative results and documents have been reviewed as part of the pre-operative evaluation. [facility] Past Medical History Medical History Hypothyroid Obesity Tonsillitis Surgical History Surgical History History of tonsillectomy Family History Family History Mother Breast cancer Davis's disease Father Renal cell carcinoma Grandparent Leukemia Social History Social History Smoking status: Never smoker Substance use: never Spiritual care concerns: No Exam Day of Procedure 08/22/21 10:19
--- NOTE | 2021-08-22 12:23 | P.PCNOB_ITS ---
OB - Delivery Note Procedure Delivery date: 08/22/21 Procedure: Vaginal delivery Events: Elective Induction of Labor and Positive Group B Strep (GBS) Induction method: AROM and Per Pitocin Protocol Delivery monitor: External FHT and External Uterine Route of delivery: Laceration Description: Perineal - 2nd Degree Delivery repair: vicryl Specimen: Yes Quantitative Blood Loss (ml): 388 Anesthesia type: Epidural Disposition: Floor [place] Baby Date of : 08/22/21 Time of : 11:58 Weeks of gestation at delivery: 39 gender: Female Weight (pounds): 8 Weight (ounces): 10 presentation: vertex position: Right Occiput Anterior Placenta delivery description: Spontaneous Cord Vessel Description: 3 Vessels, Clamped/Cut and Delayed Cord Clamping score one minute: 9 score five minutes: 9 Narrative: mom and baby skin to skin in stable condition.
[2021-08-22] MEDS: OXYTOCIN 30 UNITS/NS 500 ML 30 UNITS/500 ML BAG 125 UNITS IV CONT (12:36)
[2021-08-22] MEDS: BENZOCAINE 20% AER SPR (*SP) 56 GM CAN 1 SPRAY TOPICAL (14:44)
[2021-08-22] MEDS: WITCH HAZEL 40 PADS 1 PAD TOPICAL (14:44)
--- NOTE | 2021-08-22 15:20 | PC.NURSE ---
Patient transferred to post room #281 via wheelchair. Support person present. Oriented to unit, room, information board, rooming in, admission packet and security measures. Patient verbalizes understanding.
[2021-08-22] MEDS: IBUPROFEN 600 MG TABLET PO (16:56)
[2021-08-22] MEDS: SERTRALINE HCL 50 MG TABLET PO (21:09)
[2021-08-23 03:45] VITALS: BP 126/77; PULSE 75; RESP 16; TEMP 36.9
[2021-08-23 05:13] LABS: Hematocrit 27.1 % (37.0-47.0)
[2021-08-23] MEDS: LEVOTHYROXINE SODIUM 75 MCG TABLET PO (05:19)
[2021-08-23 07:30] VITALS: BP 120/79; PULSE 77; RESP 16; TEMP 35.8; O2SAT 98
[2021-08-23] MEDS: MULTIVIT/MIN/PREN/FOL AC/IRON TABLET 1 TAB PO (07:36)
[2021-08-23] MEDS: DOCUSATE SODIUM 100 MG CAPSULE PO ×2 (07:37→16:02)
[2021-08-23] MEDS: POLYSACCHARIDE IRON COMPLEX 150 MG CAPSULE PO ×2 (07:37→16:01)
[2021-08-23] MEDS: IBUPROFEN 600 MG TABLET PO ×3 (07:37→23:17)
--- NOTE | 2021-08-23 08:22 | P.PNOB_ITS ---
OB - PN: Subj Subjective Date/time seen: 08/23/21 08:22 Patient comments: no complaints, pain well controlled, incisional pain, tolerating diet and flatus present OB - PN: Obj Data Labs CBC & Chem 7: 08/23/21 03:50 Labs: Laboratory Results - last 24 hr 08/22/21 08/22/21 08/23/21 08:22 09:58 03:50 WBC 7.9 RBC 3.69 L Hgb 11.7 L 9.0 L Hct 34.4 L 27.1 L MCV 93.2 MCH 31.7 MCHC 34.0 RDW 13.8 Plt Count 165 MPV 10.9 H Immature Gran % (Auto) 0.4 Neut % (Auto) 79.4 H Lymph % (Auto) 13.7 L [place] % (Auto) 6.3 Eos % (Auto) 0.1 Baso % (Auto) 0.1 L Lymph # (Auto) 1.08 [place] # (Auto) 0.5 Eos # (Auto) 0.0 Baso # (Auto) 0.0 Abs Immat Gran (auto) 0.03 Absolute Neuts (auto) 6.3 Absolute Nucleated RBC 0.0 Nucleated RBC % 0.0 POC Capillary Glucose 87 OB - PN A/P Plan day: 1 Plan: routine care Comments: No problems, routine care Time Spent With Patient Time: Total time spent is greater than 50% in coordination of care (as documented) at patient's floor/unit and/or counseling patient: Exam Const: General: comfortable, no acute distress and alert Resp: Effort & Inspection: normal respiratory effort Auscultation: no crackles, no rales and no rhonchi Cardio: Rate: regular rate Heart sounds: no click, no murmurs and no rubs GI: Inspection: non-distended GI Palp: No Tenderness to palpation present (GI) Auscultation: normal bowel sounds Other: Incision - CDI Extrem: General: normal to inspection, no pedal edema and no calf tenderness
[2021-08-23 19:52] VITALS: BP 120/77; PULSE 84; RESP 16; TEMP 36; O2SAT 100
[2021-08-23] MEDS: SERTRALINE HCL 50 MG TABLET PO (20:51)
--- NOTE | 2021-08-24 00:03 | PC.NURSE ---
Patient viewed the discharge video Mother & Baby Care, The First Two Weeks . Patient was given the opportunity and encouraged to ask questions. Patient verbalized understanding of information shared and has been given the mother/baby guide for home reference.
[2021-08-24] MEDS: LEVOTHYROXINE SODIUM 75 MCG TABLET PO (05:11)
[2021-08-24 06:22] LABS: Rapid Plasma Reagin Non-Reactive (NonReactive)
--- NOTE | 2021-08-24 08:30 | PC.NURSE ---
PT introductions made and plan of care discussed per post , pain management, breast feeding, nipple shield , pumping, daily care activities and pending discharge to home. PT and spouse both recipients of instructions and no barriers to learning identified at this time. PT received instructions per one to one discussion, mom baby care guide and demonstrations this shift. PT verbalized understanding of such care.
--- NOTE | 2021-08-24 10:04 | PM.OBPNVD ---
OB - PN: Subj Subjective Date/time seen: 08/24/21 10:04 Patient comments: no complaints, pain well controlled and tolerating diet OB - PN: Obj Data Labs CBC & Chem 7: 08/23/21 03:50 Labs: Laboratory Results - last 24 hr 08/22/21 05:33 RPR Non-reactive OB - PN A/P Plan day: 2 Plan: routine care and discharge home Time Spent With Patient Time: Total time spent is greater than 50% in coordination of care (as documented) at patient's floor/unit and/or counseling patient: Exam Const: General: comfortable and no acute distress Resp: Effort & Inspection: normal respiratory effort Auscultation: no rales, no rhonchi and no wheezes Cardio: Rate: regular rate Heart sounds: no click, no murmurs and no rubs GI: GI Palp: Yes Soft to palpation and No Tenderness to palpation present (GI) Auscultation: normal bowel sounds Extrem: General: normal to inspection, no pedal edema and no calf tenderness
--- NOTE | 2021-08-24 10:04 | PM.OBDSVD ---
DS: Admitting Diagnosis Discharge Date 08/24/2021 Admitting Diagnosis term gestation OB - DS: Summary OB Procedures : None OB Procedures Intrapartum: Spontaneous Vag Delivery OB Procedures: : None Time Spent with Patient Time attestation: Total time spent providing and/or coordinating discharge services: DS: Data Data Completed and Pending Pending studies at discharge: Pending at discharge 08/22/21 12:03 Surgical [PTH] Routine Labs on day of discharge: Labs from last 24 hours 08/22/21 05:33 RPR Non-reactive Discharge Plan Discharge Discharging Clinician: Malia Sheehan Patient Disposition: Home, Self-Care Activity: pelvic rest Diet: regular Discharge Instructions: Education: Mom and Baby Guide Given to: Mother Follow-Up: Call your delivering provider's office for an appointment to be seen in: 6 Weeks Mom and baby should come to the [facility] for the follow-up appointment. Appointment Date/Time: August 25, 2021 at 9:00 am What to expect at your follow-up visit: Blood Pressure Check Call [phone] if you are unable to keep your appointment time. BREAST CARE: * Wear a snug supportive bra. * For engorgement discomfort: Breast Feeding: * Apply warm moist washcloths * Express milk as needed to relieve engorgement * Wear loose clothing Bottle Feeding: * May apply ice packs * For sore nipples: * Identify correct latch-on * Apply warm moist washcloths before and after nursing * Air dry nipples after nursing * May apply Lansinoh cream to nipples PERINEAL CARE: * Until bleeding stops, use your anabel bottle after urinating * Change your pad frequently throughout the day * You may take sitz baths several times a day (fill your bathtub with warm water and soak for 20 minutes.) Do NOT bathe in the water * No tub baths until seen by your physician - You may shower ACTIVITY: * Rest as much as possible. * Do not exercise or lift anything heavier than your baby (such as laundry or other children.) * Avoid stairs or driving as much as possible. * Do not put anything into the vagina. No douching, tampons, or sexual activity until seen by physician. NOTIFY PHYSICIAN IF YOU HAVE ANY QUESTIONS OR IF ANY OF THE FOLLOWING SYMPTOMS OCCUR: * If your perineum becomes red, swollen, or more painful than what you have experienced in the hospital. * If your vaginal bleeding becomes foul smelling. * If your vaginal bleeding becomes more heavy than a period or if your bleeding changes from pink to bright red. However, you may pass an occasional walnut-sized clot once or twice for the first week . * If you experience a sharp, shooting pain in you calves. * If you discover a hard, reddened area on your breast or if you experience flu-like symptoms. * If you have a fever of 100.4 or greater DIET: * Eat regular, well-balanced meals. * Drink plenty of fluids daily. If , drink to thirst. Patient Instructions: Antibiotic Form Stand Alone Forms: General Discharge Information Follow-up/Referrals: Malia Sheehan MD [Physician] - Discharge Medications: Continued levothyroxine 75 mcg tablet 75 mcg PO DAILY RF: 0 Humulin N NPH U-100 Insulin 100 unit/mL suspension 15 unit SUBCUT HS RF: 0 aspirin 81 mg Tablet 81 mg PO DAILY RF: 0 sertraline 50 mg tablet 50 mg PO HS RF: 0 Slow Fe 142 mg (45 mg iron) Tablet Extended Release 142 mg PO DAILY RF: 0 PNV cmb#95-ferrous fumarate-FA [] 28 mg iron- 800 mcg Tablet 1 tablet PO DAILY RF: 0 Date of admission: 08/22/21 05:00 Primary Care Provider: JayMarguerite Armijo Admitting Provider: Malia Sheehan Attending physician on admission: Amanda Contreras Condition: Stable
[2021-08-24 10:05] VITALS: BP 114/72; PULSE 78; RESP 18; TEMP 36.6; O2SAT 100; O2SAT 98
[2021-08-24] MEDS: MULTIVIT/MIN/PREN/FOL AC/IRON TABLET 1 TAB PO (10:58)
[2021-08-24] MEDS: DOCUSATE SODIUM 100 MG CAPSULE PO (10:58)
[2021-08-24] MEDS: IBUPROFEN 600 MG TABLET PO (10:58)
[2021-08-24] MEDS: POLYSACCHARIDE IRON COMPLEX 150 MG CAPSULE PO (10:58)
--- NOTE | 2021-08-24 12:00 | PC.NURSE ---
PT received discharge instructions per protocol and pt verbalized understanding of such care.
--- NOTE | 2021-08-24 13:00 | PC.NURSE ---
PT discharged to home ambulatory accompanied by spouse and and taken to waiting car. follow up appts confirmed
[2021-08-25 09:16] VITALS: BP 129/80; PULSE 79; RESP 20; TEMP 36.9; O2SAT 100
== END 2021-08-24 13:00 | disposition home or self-care (01) | DRG 807 ==
LOC: ANHOB2 08-24 10:06 → ANHLDR 08-26 09:38 → ANHOB2 08-26 09:38
PROVIDERS: Advanced Practice Midwife; Admitting Provider Obstetrics & Gynecology; PCP Nurse Practitioner Adult Health; Visit Provider Obstetrics & Gynecology
DX: O99.824 Streptococcus B carrier state complicating childbirth (principal); Z37.0 Single live birth; O70.1 Second degree perineal laceration during delivery; O99.284 Endocrine, nutritional and metabolic diseases complicating childbirth; E03.9 Hypothyroidism, unspecified; O24.429 Gestational diabetes mellitus in childbirth, unspecified control; Z3A.39 39 weeks gestation of pregnancy
CPT/HCPCS: 36415; 82948; 85014; 85018; 85025; 86592; 86850; 86900; 86901; 88307; A9270; J0290; J2590; J2795; J7120

== ENCOUNTER 2021-08-25 09:33 | Outpatient (CLI) | payer BC, MEDICAID, SELFPAY ==
--- NOTE | 2021-08-25 11:07 | PC.NURSE ---
Called to assess baby for facial cyanosis following feeding. Mother holding baby. Baby with slight circumoral cyanosis noted upon entering room. Discussed episode with mom and RN. Pulse ox applied. 02 sat 95-100%. Mom denies baby turning blue at home . Apical pulse regular and rhythmic. No murmur auscultated. Color slowly improved. Baby alert and active with intermittent, lusty cry. After 10-15 minutes and no increase in work of breathing and no desats, recommended to RN to call PMD and report findings. Reassurance given to parents. When I left room DR Palmer was present and talking with parents.
--- NOTE | 2021-08-25 13:32 | PC.NURSE ---
Addendum entered by Susana Stephen RN 08/25/21 14:29: Medications: levothroxine, sertraline, ASA, slow fe, PNV, insulin while . Original Note: In- 0933 Out- 1141 Reason for visit: latch issues/ with a nipple shield History: delivered vaginally on 08/22/21 at 39 weeks EGA with no complications with delivery. complicated by GDM, hypothyroidism, and anxiety. QBL 388. Medical history: Hypothyroidism, obesity, tonsillectomy. No history of smoking or drugs History: Born at 39 weeks EGA, APGARS of 9/9 (1 min/ 5 min) Weight 3920 g. treated twice for GBS positive results on mother. Observations: Infant color is normal for race and jaundice has been checked and recorded by follow-up nurse Abel Orozco RN and Ernesto James called concerning weight loss and jaundice. Infant is sleepy and mother works with infant well to stimulate for wakeful feeding. Mother has a used nipple shield in a zip-lock bag. RN properly washes the nipple shield and discusses risk and benefits of using a nipple shield. Mother desires to not use the nipple shield and teach infant to latch at the breast. Attempts with nipple to the breast without a nipple shield were unsuccessful, then nipple shield was used to promote teaching infant to latch with big wide open gape. After a few minutes of sucking the nipple shield was removed and attempt was made again with a shield. RN assists with educating on good positioning, holding the breast in a u-hold with gentle sandwich type holding to facilitate infant obtaining an optimal latch with big open wide gape. Infant was able to latch well (slight indent to the cheek line with good rocking motion and pain or discomfort denied by mother) but not completely optimally to the left breast using the cross cradle position and was drinking at the breast for 10 minutes, then self -detached. was held to mom's chest and burped. Due to the learning a new latch without a nipple shield, very slight misshaping of the nipple, mother was encouraged to change up the positioning to football on the left breast. Infant latched to the left breast and was drinking at the breast, then detached after 8-[address] skin to skin vertically between mother's breast until feeding cues were observed. Mother latched infant to the right breast (some excoriation present on nipple from prior latching) using football positioning and breastfed for 10-15 min until infant detached. Mother states it doesn't feel like her breast are empty. Encouraged pumping to empty the breast, warm moist washcloth to soften/soothe the breast prior to and to massage the breast before and while is and/or pumping. placed on mother's chest content to check for burping. RN prepared the scale for a post weigh when mother states and asks My baby is blue. Why is my baby blue? RN picks up and assesses and visualizes has circumoral cyanosis and the face and hands are blue. With stimulation begins to cry and gradually pinks up to normal for race with jaundice. Nursery RN called at 1107 for additional assessment, pulse ox, apical pulse and respiratory assessment. Dr. Orozco notified at 1118, then Dr. Palmer called to assess . Parents and were escorted over to the ED for further evaluation. weight: 8-10 Lowest weight: 7-11.8 (3510) Last weight: 7-11.8 (3510) Pre-feed weight: 3510 Post-feed weight: 3521 Plan of Care: Mother is distracted with the new concerns of her infant becoming blue in color for no apparent reason. During the appt mother had learned some new techniques to practice with her to encourage optimal . Mother was given phone numbers to call ([phone] or [phone]) to review the teaching from earlier. Mother had voiced and demonstrated after each education earlier in the appt understanding and father of baby is actively involved and assisting wher
== END 2021-08-25 09:34 | disposition home or self-care (01) ==
LOC: ANHOBOP 09:36 → ANHOBPP 15:13
PROVIDERS: PCP Nurse Practitioner Adult Health; Visit Provider Pediatrics
DX: R63.30 Feeding difficulties, unspecified (principal)
CPT/HCPCS: 99214; G0463

== ENCOUNTER 2022-04-01 19:35 | Emergency (ER) | payer BC, MEDICAID, SELFPAY ==
--- NOTE | 2022-04-01 19:49 | PC.NURSE ---
patient left waiting room without being seen
== END 2022-04-01 19:49 | disposition left against medical advice (07) ==
PROVIDERS: Emergency Provider Nurse Practitioner Family; PCP Emergency Medicine
DX: Z53.21 Procedure and treatment not carried out due to patient leaving prior to being seen by health care provider (principal)
CPT/HCPCS: 99199